=== PATIENT | female | born 1975 | race Caucasian/White ===

== ENCOUNTER 2017-01-16 17:23 | Emergency (ER) | payer OTHER ==
[2017-01-16] MEDS ORDERED: ONDANSETRON *ODT* 4 MG TABLET SL ONE (17:27)
[2017-01-16] MEDS ORDERED: ceFAZolin 2 GRAM PREMIX BAG IVPB ONE (17:29)
--- NOTE | 2017-01-16 17:30 | PDOC ---
History of Present Illness - History of Present Illness Initial Comments: 01/16/17 17:30 The patient is a 41 year old female, with no significant past medical history, who presents to the emergency department with pain and swelling to her right 5th digit and right ankle s/p rolling her right ankle and falling to the floor. The patient denies hitting her head. The patient states her right 5th finger was dislocated and reports popping the finger back just prior to entering the ED. The patient reports her finger is slightly numb, and states she has been icing her finger. The patient reports pain and swelling to her anterior and lateral right ankle. The patient can not weight bear on her right foot secondary to pain. She denies taking medication for pain after falling. She denies chest pain, shortness of breath, headache and dizziness. She denies fever, chills, nausea, vomit, diarrhea and constipation. She denies dysuria, frequency, urgency and hematuria. Allergies: NKDA <Elif Solis - Last Filed: 01/16/17 17:35> <Kenyon Lazar - Last Filed: 01/16/17 18:53> - General Chief Complaint: Injury Stated Complaint: RIGHT ANKLE & R 5TH FINGER PAIN Time Seen by Provider: 01/16/17 17:24 Past History <Elif Solis - Last Filed: 01/16/17 17:35> - Suicide/Smoking/Psychosocial Hx Smoking History: Never smoked Have you smoked in the past 12 months: No Hx Alcohol Use: No Drug/Substance Use Hx: No Substance Use Type: None <Kenyon Lazar - Last Filed: 01/16/17 18:53> - Past Medical History Allergies/Adverse Reactions: Allergies Allergy/AdvReac Type Severity Reaction Status Date / Time No Known Allergies Allergy Verified 09/02/15 22:45 Home Medications: Ambulatory Orders Cephalexin [Keflex] 500 mg PO QID #40 capsule 01/16/17 Ibuprofen [Motrin -] 600 mg PO QID #28 tablet 01/16/17 Ondansetron [Zofran *Odt*] 8 mg SL TID #30 od.tablet 01/16/17 Oxycodone HCl/Acetaminophen [Percocet 5-325 mg Tablet] 1 - 2 tab PO Q6H #20 tab MDD 6 01/16/17 Review of Systems - Review of Systems Able to Perform ROS?: Yes Comments:: 01/16/17 17:31 GENERAL/CONSTITUTIONAL: No fever or chills. No weakness. HEAD, EYES, EARS, NOSE AND THROAT: No change in vision. No ear pain or discharge. No sore throat. CARDIOVASCULAR: No chest pain or shortness of breath. RESPIRATORY: No cough, wheezing, or hemoptysis. GASTROINTESTINAL: No nausea, vomiting, diarrhea or constipation. GENITOURINARY: No dysuria, frequency, or change in urination. MUSCULOSKELETAL: (+) pain and swelling to right ankle and right 5th digit. No muscle swelling or pain. No neck or back pain. SKIN: No rash NEUROLOGIC: No headache, vertigo, loss of consciousness, or change in strength/ sensation. ENDOCRINE: No increased thirst. No abnormal weight change. HEMATOLOGIC/LYMPHATIC: No anemia, easy bleeding, or history of blood clots. ALLERGIC/IMMUNOLOGIC: No hives or skin allergy. <Elif Solis - Last Filed: 01/16/17 17:35> *Physical Exam - Physical Exam Comments: 01/16/17 17:36 GENERAL: Awake, alert, and fully oriented, tearful on exam. HEAD: No signs of trauma EYES: PERRLA, EOMI, sclera anicteric, conjunctiva clear ENT: Auricles normal inspection, hearing grossly normal, nares patent, oropharynx clear without exudates. Moist mucosa NECK: Normal ROM, supple, no lymphadenopathy, JVD, or masses LUNGS: Breath sounds equal, clear to auscultation bilaterally. No wheezes, and no crackles HEART: Regular rate and rhythm, normal S1 and S2, no murmurs, rubs or gallops ABDOMEN: Soft, nontender, normoactive bowel sounds. No guarding, no rebound. No masses EXTREMITIES: (+) swelling to the right lateral malleolus with tenderness to the anterior and lateral left ankle. There are 2 lacerations/abrasions to the right 5th digit making it suspicious for open fracture. there is also swelling to the right 5th digit at the PIP joint. Normal range of motion, no edema. No clubbing or cyanosis. No cords, erythema, or tenderness NEUROLOGICAL: Cranial nerves II through XII grossly intact. Normal speech, normal gait SKIN: Warm, Dry, normal turgor, no rashes or lesions noted. <Elif Solis - Last Filed: 01/16/17 17:35> ED Treatment Course - RADIOLOGY Radiology Studies Ordered: Category Date Time Status ANKLE & FOOT-RIGHT* [RAD] Stat Radiology 01/16/17 17:28 Ordered HAND- RIGHT [RAD] Stat Radiology 01/16/17 17:28 Ordered <Kenyon Lazar - Last Filed: 01/16/17 18:53> *DC/Admit/Observation/Transfer - Attestations Scribe Attestion: 01/16/17 17:39 Documentation prepared by Elif Solis, acting as medical social consultant for Kenyon Lazar DO <Elif Solis - Last Filed: 01/16/17 17:35> - Discharge Dispostion Admit: No <Kenyon Lazar - Last Filed: 01/16/17 18:53> Diagnosis at time of Disposition: Sprain of ankle, Open dislocation - Discharge Dispostion Disposition: HOME Condition at time of disposition: Good - Prescriptions Prescriptions: Cephalexin [Keflex] 500 mg PO QID #40 capsule Ibuprofen [Motrin -] 600 mg PO QID #28 tablet Oxycodone HCl/Acetaminophen [Percocet 5-325 mg Tablet] 1 - 2 tab PO Q6H #20 tab MDD 6 Ondansetron [Zofran *Odt*] 8 mg SL TID #30 od.tablet - Referrals Referrals: June Rinaldi MD [Primary Care Provider] - James Oliva MD [Staff Physician] - Alhaji Chávez MD [Staff Physician] - - Patient Instructions Printed Discharge Instructions: DI for Open Fracture, DI for Ankle Sprain, DI for Finger Dislocation Additional Instructions: Thais- So sorry this happened to you.... See Ortho this week Motrin for pain Percocet and Zofran for really horrible pain Keflex four times a day for a full ten days Keep the wound covered with neosporin and a bandage Daniel tape or splint the finger Air Cast and Crutches for the ankle RETURN TO US IF ANY PROBLEMS ALTHOUGH IT HURTS BAD NOW, IT WILL BE A GREAT STORY TO TELL AT A CONSTITUTION PARTY SOME DAY- Hope you feel better and are fully functional again soon- Best- Dr. Kenyon Lazar
[2017-01-16 17:36] VITALS: BP 140/96; PULSE 91; TEMP 98.3; BMI 27.1
[2017-01-16] MEDS ORDERED: ONDANSETRON *ODT* 4 MG TABLET ONE (17:46)
[2017-01-16] MEDS ORDERED: ceFAZolin SODIUM 1 GM VIAL ONE (17:57)
[2017-01-16] MEDS ORDERED: CEFAZOLIN 2 GM in DEXTROSE 5%-WATER - 100 ML IVPB ONE (18:00)
== END 2017-01-16 19:09 | disposition home or self-care (01) ==
LOC: FER 17:23
DX: S62.606B Fracture of unspecified phalanx of right little finger, initial encounter for open fracture (principal); S93.401A Sprain of unspecified ligament of right ankle, initial encounter; W18.39XA Other fall on same level, initial encounter; Y93.89 Activity, other specified; Y92.9 Unspecified place or not applicable
CPT/HCPCS: 73130-TC-RT; 73610-TC-RT; 73630-TC-RT; 99282-25